=== PATIENT | female | born 1995 | race Hispanic/Latino ===

== ENCOUNTER 2018-06-18 23:23 | Emergency (ER) | payer MEDICAID ==
[2018-06-19] MEDS ORDERED: PREDNISONE 20 MG TABLET ONE (00:26)
== END 2018-06-19 00:42 | disposition home or self-care (01) ==
LOC: EDH 23:23
DX: O26.893 Other specified pregnancy related conditions, third trimester (principal); G51.0 Bell's palsy; Z88.0 Allergy status to penicillin; Z98.890 Other specified postprocedural states; Z79.899 Other long term (current) drug therapy; Z3A.37 37 weeks gestation of pregnancy

== ENCOUNTER 2024-10-25 10:42 | Emergency (ER) | payer BC, SELFPAY ==
[~2024-10-25] VITALS: Ht 154.9 cm; Wt 82.6 kg
[~2024-10-25 10:42] MED LIST: CALC500T7 PO; PREN1TAB80 PO
--- NOTE | 2024-10-25 10:47 | ERN ---
ED Note History of Present Illness Stated Complaint: ABD PAIN Chief Complaint: Abdominal Pain Time Seen by MD: 10:44 Dictation: PATIENT IS A 29-YEAR-OLD FEMALE WITH A SUDDEN ONSET OF RIGHT FLANK PAIN THAT RADIATES TO RIGHT LOWER QUADRANT AND RIGHT LEG WITH NAUSEA ONSET THIS MORNING. NO FEVER NO CHILLS NO CHANGE IN URINATION. SHE STATES SHE WAS ON THE DEPO- PROVERA SHOT FOR CONTROL HOWEVER STOPPED IT TWO MONTHS AGO. DENIES ANY HISTORY OF UROLITHIASIS. STILL HAS A APPENDIX LAST MENSTRUAL PERIOD Allergies: Coded Allergies: Penicillins (Verified Allergy, 01/14/12) Home Meds Reported Medications Calcium Carbonate (Tums) 200 Mg Tab.chew, 200 MG PO AD PRN for HEARTBURN, TAB.CHEW 06/26/18 Vits W-Ca,Fe,FA(<1Mg) ( Vitamins) 1 Each Tablet, 1 EACH PO HS, TAB 06/26/18 Past Medical History RN Note Reviewed/Agreed w/PFSH: Yes Review of System Dictation CONSTITUTIONAL: NEGATIVE EXCEPT FOR HPI HEAD/FACE: NEGATIVE EXCEPT FOR HPI EENT: NEGATIVE EXCEPT FOR HPI RESPIRATORY: NEGATIVE EXCEPT FOR HPI GASTROINTESTINAL/ABDOMINAL: NEGATIVE EXCEPT FOR HPI RIGHT FLANK PAIN RADIATING TO RIGHT LOWER QUADRANT AND RIGHT LEG WITH NAUSEA. GENITOURINARY: NEGATIVE EXCEPT FOR HPI MUSCULOSKELETAL: NEGATIVE EXCEPT FOR HPI INTEGUMENTARY: NEGATIVE EXCEPT FOR HPI NEUROLOGICAL/PSYCH: NEGATIVE EXCEPT FOR HPI HEMATOLOGIC/LYMPHATIC: NEGATIVE EXCEPT FOR HPI ALL SYSTEMS NEGATIVE, EXCEPT NOTED ABOVE. 13 POINT REVIEW OF SYSTEMS ASSESSED AND ALL NEGATIVE EXCEPT FOR ABOVE. Initial Vital Sign VS Vital Signs Date Time Temp Pulse Resp B/P (MAP) Pulse Ox O2 Delivery O2 Flow Rate FiO2 10/25/24 10:44 97.9 74 18 134/75 98 Room Air 0 10/25/24 11:08 21 Physical Exam Dictation VITAL SIGNS REVIEWED GENERAL APPEARANCE: ALERT, ORIENTED X 3, MODERATE ACUTE DISTRESS, WELL DEVELOPED, NOURISHED. HEAD AND FACE: NON-TRAUMATIC. EYES: PERRL, PINK CONJUNCTIVAS, EYELID NO TRAUMA, ANTERIOR CHAMBER WITH ARCUS SENILIS. EARS: PINNAS INTACT AND NO SIGNS OF TRAUMA OR ERYTHEMA EAR CANALS CLEAR AND NO DISCHARGE TM NO ERYTHEMA NOSE: NO DISCHARGE, NO BLEEDING. OROPHARYNX: MOUTH NORMAL, TONGUE PINK, PHARYNX CLEAR,NO ERYTHEMA, TONSILS NO EXUDATES, NO ABSCESSES NOTED, MUCOUS MEMBRANE MOIST NECK: SUPPLE, NON-TENDER, NO THYROMEGALY, NO MASSES, NO JVD, NO BRUITS BREAST:DEFERRED CHEST:NO TENDERNESS, NO CREPITUS, NO PARADOXICAL MOVEMENT, NO RETRACTIONS LUNGS:CLEAR, WELL-VENTILATED, SYMMETRIC, NO RALES, NO WHEEZING, NO RHONCHI, NO STRIDOR, GOOD BREATH SOUNDS BILATERALLY HEART: REGULAR RATE, REGULAR RHYTHM, NO MURMUR, NO GALLOPS VASCULAR: NO PERIPHERAL EDEMA, ABDOMEN: SOFT, POSITIVE BOWEL SOUNDS, NONDISTENDED, NO GUARDING, MILD PERIUMBILICAL AND RIGHT LOWER QUADRANT TENDERNESS WITH MILD REBOUND, , NO MASSES NO HEPATOMEGALY, NO SPLENOMEGALY, NO OGLESBY'S SIGN, NO HERNIAS. POSITIVE RIGHT CVAT RECTAL: DEFERRED GENITAL: DEFERRED NEUROLOGICAL: NORMAL SPEECH, MOTOR FUNCTION INTACT, SENSORY FUNCTION INTACT MUSCULOSKELETAL: NECK NONTENDER, FULL RANGE OF MOTION, BACK NONTENDER, FULL RANGE OF MOTION, EXTREMITIES: NONTENDER, FULL RANGE OF MOTION SKIN: COLOR PINK, DRY, NO TURGOR, NO RASH, NO LACERATIONS, NO ABRASIONS, NO CONTUSIONS. LYMPHATIC: DEFERRED Results (Laboratory/Radiology) Laboratory/Radiology Laboratory Tests Test 10/25/24 10:52 White Blood Count 14.8 K/uL (4.8-10.8) H Red Blood Count 5.06 MIL/uL (4.00-5.50) Hemoglobin 15.2 g/dL (12.0-16.0) Hematocrit 43.0 % (36-48) Mean Corpuscular Volume 85.0 fL (79-99) Mean Corpuscular Hemoglobin 30.0 pg (27.0-33.0) Mean Corpuscular Hemoglobin Concent 35.3 g/dL (32.0-36.0) Red Cell Distribution Width 12.4 % (11.0-15.5) Platelet Count 364 K/uL (130-400) Mean Platelet Volume 9.4 fL (7.5-10.5) Immature Granulocyte % (Auto) 0.3 % (0-1) Neutrophils (%) (Auto) 81.6 % (40.0-77.0) H Lymphocytes (%) (Auto) 12.7 % (21.0-51.0) L Monocytes (%) (Auto) 4.1 % (3.0-13.0) Eosinophils (%) (Auto) 0.9 % (0.0-8.0) Basophils (%) (Auto) 0.4 % (0.0-5.0) Neutrophils # (Auto) 12.0 K/uL (1.8-7.7) H Lymphocytes # (Auto) 1.9 K/uL (1.0-4.8) Monocytes # (Auto) 0.6 K/uL (0.1-1.0) Eosinophils # (Auto) 0.14 K/uL (0.00-0.70) Basophils # (Auto) 0.06 K/uL (0.00-0.20) Absolute Immature Granulocyte (auto 0.05 K/uL (0-1) Nucleated Red Blood Cells 0.0 % (0.0-0.19) Urine Color LIGHT-YELLOW (YELLOW) Urine Appearance CLEAR (CLEAR) Urine pH 6.5 (5.0-8.0) Urine Specific [place] 1.023 (1.001-1.031) Urine Protein 10 mg/dL (NEGATIVE) H Urine Glucose (UA) NEGATIVE mg/dL (NEGATIVE) Urine Ketones 5 mg/dL (NEGATIVE) H Urine Occult Blood NEGATIVE (NEGATIVE) Urine Nitrate NEGATIVE (NEGATIVE) Urine Bilirubin NEGATIVE mg/dL (NEGATIVE) Urine Urobilinogen 0.2 mg/dL (0.2-1.0) Urine Leukocyte Esterase NEGATIVE [place]/uL Urine RBC 11-25 /HPF (0-1) H Urine WBC 2-5 /HPF (0-1) H Urine Squamous Epithelial Cells FEW /HPF (0-2) Urine Bacteria Rare /HPF (None Seen) Urine HCG, Qualitative NEGATIVE (NEGATIVE) Sodium Level 136 mmol/L (136-145) Potassium Level 3.7 mmol/L (3.5-5.1) Chloride Level 104 mmol/L (101-111) Carbon Dioxide Level 28 mmol/L (21-32) Blood Urea Nitrogen 8 mg/dL (7-18) Creatinine 0.8 mg/dL (0.5-1.0) Glomerular Filtration Rate Calc 102 mL/min (>90) Random Glucose 129 mg/dL (70-105) H Total Calcium 8.8 mg/dL (8.5-10.1) Lipase 30 U/L (16-77) IMAGING REPORT Signed PATIENT: ELIZABETH NELSON MR#: [id number] : 1995 SEX: F AGE: 29 LOCATION: [facility] ORDER [id number] STATUS: REG ER REPORT#: [id number] SERVICE [id number] REASON: RIGHT FLANK PAIN RADIATING TO RIGHT LOWER QUADRANT ORDERING PHYSICIAN: JEANNIE BARKLEY NP PROCEDURE: ABD PEL WO - CT ABDOMEN/PELVIS W/O CONTRAST EXAM: CT Abdomen and Pelvis Without IV contrast CLINICAL HISTORY: RIGHT FLANK PAIN RADIATING TO RIGHT LOWER QUADRANT TECHNIQUE: Axial computed tomography images of the abdomen and pelvis without intravenous contrast. CONTRAST: No IV contrast. COMPARISON: None provided. FINDINGS: LUNG BASES: The lung bases appear clear. No pleural effusions are seen. LIVER: Unremarkable. GALLBLADDER AND BILE DUCTS: The gallbladder appears within normal limits. No radioopaque gallstones are seen. No biliary ductal dilatation is evident. PANCREAS: Unremarkable. SPLEEN: Unremarkable. ADRENAL GLANDS: Unremarkable. KIDNEYS, URETERS, AND BLADDER: 2 mm stone at the right ureterovesicular junction with moderate right hydroureteronephrosis. No additional urinary calculi. No left hydronephrosis. STOMACH AND BOWEL: Unremarkable appearance of the stomach and bowel. No evidence of bowel obstruction. No evidence suggesting enteritis or colitis. APPENDIX: Normal appendix. PERITONEUM: No free fluid. No free air. LYMPH NODES: No lymphadenopathy is evident. REPRODUCTIVE: Unremarkable as visualized. VASCULATURE: No evidence of abdominal aortic aneurysm. BONES: No aggressive appearing osseous lesion. No acute osseous pathology evident. IMPRESSION: 2 mm stone at the right ureterovesicular junction with moderate right hydroureteronephrosis. /[facility] Labs Reviewed?: Yes ED Course ED Course Orders Procedure Category Date Status Time Cbc With Differential LAB 10/25/24 Complete 10:44 ,Urine Test LAB 10/25/24 Complete 10:44 Urinalysis Profile LAB 10/25/24 Complete 10:44 0.9%Nacl 1000ml (Ns PHA 10/25/24 In Process 1000ml) 11:00 Morphine 2mg Syg PHA 10/25/24 Complete (Morphine 2mg Syg) 11:00 Ondansetron 4mg Inj PHA 10/25/24 Complete (Zofran 4mg Inj) 11:00 Ct Abdomen/Pelvis W/O CT 10/25/24 Resulted Contrast 10:44 Lipase LAB 10/25/24 Complete 10:44 Basic Metabolic Panel LAB 10/25/24 Complete 10:44 Morphine 4mg Syg PHA 10/25/24 Complete (Morphine 4mg Syg) 12:30 Ketorolac PHA 10/25/24 Complete Tromethamine 30mg/Ml 12:30 Tamsulosin Hcl PHA 10/26/24 In Process (Flomax) 09:00 0.9%Nacl 1000ml (Ns PHA 10/25/24 Complete 1000ml) 12:30 Tamsulosin Hcl PHA 10/25/24 Complete (Flomax) 12:34 Current Medications Medications (Trade) Dose Ordered Sig/[place] Route PRN Reason Start Time Stop Time Status Last Admin Dose Admin Ketorolac Tromethamine (toRADol) 30 mg ONCE ONCE IVP 10/25/24 12:30 10/25/24 12:31 DC 10/25/24 12:32 Morphine Sulfate (morPHINE 2MG SYG) 2 mg ONCE ONCE IVP 10/25/24 11:00 10/25/24 11:01 DC 10/25/24 11:18 Morphine Sulfate (morPHINE 4MG SYG) 4 mg ONCE ONCE IVP 10/25/24 12:30 10/25/24 12:24 DC Ondansetron HCl (zoFRAN 4MG INJ) 4 mg ONCE ONCE IVP 10/25/24 11:00 10/25/24 11:01 DC 10/25/24 11:18 Sodium Chloride 1,000 ml @ 0 mls/hr ONCE ONCE IV 10/25/24 12:30 10/25/24 12:31 DC 10/25/24 12:34 Sodium Chloride 1,000 ml @ 125 mls/hr ONCE ONCE IV 10/25/24 11:00 10/25/24 18:59 10/25/24 11:18 Tamsulosin HCl (FloMAX) 0.4 mg STK-MED ONCE .ROUTE 10/25/24 12:34 10/25/24 12:34 DC Tamsulosin HCl (FloMAX) 0.8 mg DAILY PO 10/26/24 09:00 11/25/24 08:59 10/25/24 12:35 Vital Signs Date Time Temp Pulse Resp B/P (MAP) Pulse Ox O2 Delivery O2 Flow Rate FiO2 10/25/24 11:08 97.9 74 18 134/75 98 Room Air* 0 21 10/25/24 10:44 97.9 74 18 134/75 98 Room Air 0 1320/PATIENT STATES PAIN IS COMPLETELY RESOLVED AFTER TAMSULOSIN AND TORADOL. SHE IS AWARE SHE WILL BE ON FLOMAX FOR THE NEXT SEVERAL DAYS AND INCREASE YOUR FLUID INTAKE. WE WILL BE GIVEN THE NAME OF UROLOGISTS AND HAVE HER FOLLOW UP NEEDED NEXT WEEK. ALL QUESTIONS ANSWERED Medical Decision Making MDM MDM: DIFFERENTIAL DIAGNOSIS: ECTOPIC /UTI/PYELONEPHRITIS/APPENDICITIS/D IVERTICULITIS/UTI/UROLITHIASIS/HYDRO URETER RATIONALE: TESTS CONSIDERED AND ORDERED SECONDARY TO SHARED DECISION MAKING INCLUDE: RADIOLOGY/LABS PREVIOUS OUTSIDE RECORDS REVIEWED: OLD ER VISITS. RISK OF COMPLICATION AND/OR MORBIDITY OR MORTALITY OF PATIENT MANAGEMENT: NONE MEDICATIONS-PER MEDICATION RECONCILIATION NEED FOR HOSPITALIZATION: PATIENT DOES NOT MEET CRITERIA FOR HOSPITALIZATION. NONE NEED FOR EMERGENCY MAJOR/MINOR SURGERY: NO THERE ARE NO SOCIAL CONCERNS WITH THIS PATIENT. PRESCRIPTION DRUG MANAGEMENT FLOMAX/IBUPROFEN PRESCRIPTIONS WILL INCLUDE SYMPTOMATIC CARE PATIENT'S PRIOR EXTERNAL MEDICAL RECORDS FROM OTHER ER VISITS WERE REVIEWED BY ME INDICATED. PRIOR TESTING AND RESULTS FROM PREVIOUS VISITS WERE REVIEWED. PRIOR TESTS WERE TAKEN INTO ACCOUNT WITH MEDICAL DECISION MAKING AND RESOURCE UTILIZATION, INDEPENDENT HISTORIAN/HISTORIANS WERE USED TO OBTAIN COMPLETE MEDICAL HISTORY. I INDEPENDENTLY INTERPRETED THE TEST THAT WERE PERFORMED, RESULTS WERE REVIEWED BY ME AND CONSIDERED FINDINGS ON RADIOLOGY IF ORDERED. MEDICAL MANAGEMENT AND EXAMINATION INTERPRETATION DISCUSSIONS WERE HAD BY ME WITH OTHER QUALIFIED HEALTHCARE PROFESSIONALS INDICATED FOR THE PATIENT'S CARE. DX & DISP Disposition: Discharge Departure Impression: Primary Impression: Hydronephrosis of right kidney Additional Impressions: Urolithiasis, Hyperglycemia Condition: Stable Scripts Ibuprofen (Ibuprofen 800 mg Tab) 800 Mg Tab 800 MG PO Q8H PRN for fever or pain, #30 TAB 0 Refills Prov: JEANNIE BARKLEY NP 10/25/24 Tamsulosin HCl (Flomax) 0.4 Mg Cap.er.24h 0.8 MG PO DAILY for 7 Days, #7 CAPSULE. Prov: JEANNIE BARKLEY [employer]FTS TEACHER 10/25/24 Additional Instructions: FOLLOW-UP WITH PRIMARY CARE PROVIDER IN 1 TO 2 DAYS. TAKE MEDICATIONS DIRECTED HERE IN THE EMERGENCY ROOM. OKAY TO CONTINUE HOME MEDICATIONS UNLESS OTHERWISE DISCUSSED DURING YOUR VISIT IN THE EMERGENCY ROOM TODAY. RETURN TO YOUR NEAREST EMERGENCY ROOM IF SYMPTOMS WORSEN OR IF THERE IS NO IMPROVEMENT. CALL 911 IF YOU NEED IMMEDIATE ASSISTANCE. TAKE TYLENOL OR MOTRIN [id number] NEEDED AND IF NO CONTRAINDICATIONS ARE PRESENT. INCREASE ORAL HYDRATION. A WOUND CULTURE OR URINE CULTURE WAS ORDERED HERE IN THE EMERGENCY ROOM DEPARTMENT PLEASE FOLLOW-UP WITH PRIMARY CARE PROVIDER AND ADVISE THEM TO GET REPEAT PORTS FROM OUR FACILITY. IF YOU HAD ANY NIGHAT WRAP/SPLINTS THAT WERE APPLIED HERE, PLEASE DO NOT REMOVE THEM UNTIL YOU SEE YOUR PRIMARY CARE OR SPECIALTY. TAKE FLOMAX DIRECTED FOR THE NEXT SEVEN DAYS STARTING TOMORROW. TAKE IBUPROFEN WITH FOOD NEEDED FOR PAIN. INCREASE YOUR WATER INTAKE. CALL FOR AN APPOINTMENT WITH THE UROLOGIST IN THE NEXT 2-3 DAYS IF PAIN RETURNS Referrals: STEVEN BOYLE MD (PCP) KHLOE FRANCIS MD Time of Disposition: 13:25 I have reviewed the case, and I agree with, Diagnosis and Plan JEANNIE BARKLEY NP Oct 25, 2024 10:47
[2024-10-25 11:03] LABS: IMMATURE GRANULOCYTE ABSOLUTE 0.05 K/uL (0-1); NUCLEATED RED BLOOD CELLS 0.0 % (0.0-0.19); PLATELET COUNT (AUTO) 364 K/uL (130-400); RED BLOOD CELL COUNT(AUTO) 5.06 MIL/uL (4.00-5.50); RED CELL DISTRIBUTION WIDTH 12.4 % (11.0-15.5); WHITE BLOOD COUNT (AUTO) 14.8 K/uL (4.8-10.8)
[2024-10-25 11:11] LABS: APPEARANCE,URINE CLEAR (CLEAR); GLUCOSE, URINE (UA) NEGATIVE (NEGATIVE); LEUKOCYTE ESTERASE ,URINE NEGATIVE Leu/uL (NEGATIVE); NITRATE,URINE NEGATIVE (NEGATIVE); OCCULT BLOOD,URINE NEGATIVE (NEGATIVE)
[2024-10-25 11:13] LABS: CREATININE 0.8 mg/dL (0.5-1.0); GLOMERULAR FILTR. RATE CALC 102.0 mL/min (>90); GLUCOSE,RANDOM 129.0 mg/dL (70-105); SODIUM SERUM 136.0 mmol/L (136-145); UREA NITROGEN, BLOOD 8.0 mg/dL (7-18)
[2024-10-25 11:16] LABS: ADD UA MICROSCOPIC YES
[2024-10-25] MEDS: 0.9%NACL 1000ML 1,000 ML IV ONE ×2 (11:18→12:34)
[2024-10-25 11:22] LABS: SQUAMOUS EPITHELIAL CELL,UR FEW /HPF (0-2)
[2024-10-25 11:28] LABS: HCG,QUALITATIVE URINE NEGATIVE (NEGATIVE)
--- NOTE | 2024-10-25 12:18 | HMCIMG ---
EXAM: CT Abdomen and Pelvis Without IV contrast CLINICAL HISTORY: RIGHT FLANK PAIN RADIATING TO RIGHT LOWER QUADRANT TECHNIQUE: Axial computed tomography images of the abdomen and pelvis without intravenous contrast. CONTRAST: No IV contrast. COMPARISON: None provided. FINDINGS: LUNG BASES: The lung bases appear clear. No pleural effusions are seen. LIVER: Unremarkable. GALLBLADDER AND BILE DUCTS: The gallbladder appears within normal limits. No radioopaque gallstones are seen. No biliary ductal dilatation is evident. PANCREAS: Unremarkable. SPLEEN: Unremarkable. ADRENAL GLANDS: Unremarkable. KIDNEYS, URETERS, AND BLADDER: 2 mm stone at the right ureterovesicular junction with moderate right hydroureteronephrosis. No additional urinary calculi. No left hydronephrosis. STOMACH AND BOWEL: Unremarkable appearance of the stomach and bowel. No evidence of bowel obstruction. No evidence suggesting enteritis or colitis. APPENDIX: Normal appendix. PERITONEUM: No free fluid. No free air. LYMPH NODES: No lymphadenopathy is evident. REPRODUCTIVE: Unremarkable as visualized. VASCULATURE: No evidence of abdominal aortic aneurysm. BONES: No aggressive appearing osseous lesion. No acute osseous pathology evident. IMPRESSION: 2 mm stone at the right ureterovesicular junction with moderate right hydroureteronephrosis. /[place]
[2024-10-25] MEDS ORDERED: IBUP-2077 PO (13:26)
[2024-10-25] MEDS ORDERED: TAMS-55 PO (13:26)
[2024-10-25 13:30] VITALS: BP 127/72; PULSE 72; RESP 18; TEMP 97.9; O2SAT 98
== END 2024-10-25 13:31 | disposition home or self-care (01) ==
LOC: EDH 10:42
DX: N13.2 Hydronephrosis with renal and ureteral calculous obstruction (principal); R73.9 Hyperglycemia, unspecified; Z88.0 Allergy status to penicillin; Z79.899 Other long term (current) drug therapy
CPT/HCPCS: 99285; 74176; 96374; 96375; 80048; 83690; 85025; 81001; 81025; 36415; J1885; J2270 ×2; J7030; J2405